=== PATIENT | female | born 1925 | race Caucasian/White ===

== ENCOUNTER 2016-09-17 08:05 | Emergency (ER) | payer MEDICARE, OTHER | END 2016-09-17 13:20 | disposition home or self-care (01) | LOC: ER1 08:05 | DX: M51.36 Other intervertebral disc degeneration, lumbar region (principal); E11.9 Type 2 diabetes mellitus without complications; E03.9 Hypothyroidism, unspecified; I10 Essential (primary) hypertension; K21.9 Gastro-esophageal reflux disease without esophagitis | CPT/HCPCS: 72131; 81001; 87086; 99284 ==

== ENCOUNTER → 2016-09-21 | Outpatient (CLI) | payer MEDICARE, OTHER | LOC: KOH-I 15:54 | DX: M25.561 Pain in right knee (principal) | CPT/HCPCS: 73560 ==